=== PATIENT | male | born 1960 | race Caucasian/White ===

== ENCOUNTER 2018-01-08 12:03 | Emergency (ER) | payer OTHER | END 2018-01-08 13:52 | disposition home or self-care (01) | LOC: M ED 12:03 | DX: M50.20 Other cervical disc displacement, unspecified cervical region (principal); M47.812 Spondylosis without myelopathy or radiculopathy, cervical region; V49.9XXA Car occupant (driver) (passenger) injured in unspecified traffic accident, initial encounter; Y92.9 Unspecified place or not applicable; Y93.9 Activity, unspecified; K22.70 Barrett's esophagus without dysplasia | CPT/HCPCS: 72125 ==